=== PATIENT | male | born 1960 | race Caucasian/White ===

== ENCOUNTER 2017-08-11 00:38 | Outpatient (CLI) ==
[2017-01-06 11:10] VITALS: BMI 25.8
== END 2017-08-11 00:39 | disposition home or self-care (01) ==
LOC: LAB 00:38
PROVIDERS: ATTEND Nurse Practitioner Family
DX: I15.9 Secondary hypertension, unspecified (principal)
CPT/HCPCS: 36415; 80053; 80061; 81001; 82306; 83036; 84443; 85025